=== PATIENT | female | born 1970 | race Caucasian/White ===

== ENCOUNTER 2023-05-12 09:41 | Emergency (ER) | payer MEDICAID ==
[~2023-05-12] VITALS: Ht 165.1 cm; Wt 91.0 kg
[2023-05-12 09:42] VITALS: O2SAT 99
[2023-05-12] MEDS ORDERED: KETOROLAC 60MG/2ML VIAL IM STA (12:15)
[2023-05-12] MEDS ORDERED: AMLODIPINE 5MG TABLET PO ONE (12:15)
[2023-05-12] MEDS ORDERED: AMLODIPINE 5MG TABLET PO SCH (13:45)
[2023-05-12] MEDS ORDERED: HYDROCODONE/ACETAMINOPHEN 5/325MG TABLET PO STA (15:43)
[2023-05-12 16:39] LABS: CLARITY URINE CLEAR (CLEAR); COLOR URINE YELLOW (YELLOW); GLUCOSE URINE NEGATIVE (NEGATIVE); KETONES URINE NEGATIVE (NEGATIVE); LEUKOCYTE ESTERASE URINE NEGATIVE (NEGATIVE); NITRITE URINE NEGATIVE (NEGATIVE); OCCULT BLOOD URINE NEGATIVE (NEGATIVE); PROTEIN URINE NEGATIVE (NEGATIVE); SPECIFIC GRAVITY URINE 1.008 (1.005-1.030); UROBILINOGEN URINE 0.2 E.U./dL (0.2-1.0)
[2023-05-12] MEDS ORDERED: HYDR-4001 PO (17:40)
[2023-05-12] MEDS ORDERED: NAPR-681 PO (17:40)
[2023-05-12] MEDS ORDERED: BACK1EAC12 MC (17:40)
[2023-05-12 18:23] VITALS: BP 144/77; PULSE 86; RESP 19; TEMP 98.5
== END 2023-05-12 18:24 | disposition home or self-care (01) ==
LOC: ER 09:41
DX: S32.009A Unspecified fracture of unspecified lumbar vertebra, initial encounter for closed fracture (principal); M25.522 Pain in left elbow; I10 Essential (primary) hypertension; W01.0XXA Fall on same level from slipping, tripping and stumbling without subsequent striking against object, initial encounter; Y93.89 Activity, other specified; Y92.89 Other specified places as the place of occurrence of the external cause; Y99.8 Other external cause status
CPT/HCPCS: 81003; 73502; 72100; 73080; 72131; 96372; 99285; J1885; Z7610 ×3